=== PATIENT | female | born 1970 | race Caucasian/White ===

== ENCOUNTER → 2016-06-29 | Outpatient (CLI) | payer OTHER ==
--- NOTE | 2016-06-29 12:01 | US ---
Diagnostic Bilateral Breast Ultrasound History: Palpable lump in the 6 o'clock left breast on physical exam. Asymmetry on mammograms. Comparison: Diagnostic mammogram same day. Technique: Limited grayscale and Doppler ultrasound in the region of mammographic abnormality was per formed. Real-time sonography was performed by the radiologist. Findings: Directed visible exam was performed, with no discrete lump identified in the 6 o'clock left breast. Ultrasound of the area shows dense breast parenchyma with no cystic or solid masses or areas of architectural distortion. Ultrasound of the right breast in the areas of mammographic asymmetries shows dense breast parenchyma with no cystic or solid masses or areas of architectural distortion. Impression: BI-RADS 2: Benign findings. Recommendation: Clinical follow-up is recommended for palpable left breast lump with no sonographic o r mammographic etiology. Screening mammograms in one year of sooner if clinically indicated. Findings and recommendations were discussed with the patient. [facility] will send a result letter to the patient.
--- NOTE | 2016-06-29 12:03 | MA ---
Bilateral Digital Diagnostic Mammogram Clinical Indications: 46-year-old with palpable lump in the 6 o'clock left breast on physical exam (n ot currently palpable by the patient), baseline mammograms. technique: Standard cephalocaudal and mediolateral oblique projections were obtained. True lateral views were obtained bilaterally with CC and mediolateral spot compression views of the right breast. This examination was processed by the [employer] computer-aided detection system. Comparison: None available. Breast density: Type C: The breast tissue is heterogeneously dense, which may obscure small masses. Findings: CAD was reviewed. No suspicious calcifications, masses, or areas of architectural distorti on are identified in the left breast, although heterogeneously dense breast parenchyma limits sensiti vity. There are asymmetries in the superoinferior and central right breast, best seen on the MLO view , with heterogeneously dense breast parenchyma in the central and outer right breast on the CC view. Heterogeneously dense breast parenchyma reduces sensitivity for noncalcified masses. Impression: 1. No visible etiology for the patient's palpable lump. 2. Multiple asymmetries in the right breast that could be related to overlapping breast parenchyma. BI-RADS 0: Needs additional imaging evaluation. Recommendation: Ultrasound, which will be performed later the same day. Please see separate dictatio n for findings and recommendations. [facility] will send a result letter to the patient. Negative mammography should not preclude additional workup of a clinically suspicious finding. The patient's information is entered into a reminder system with a target due date for her next mammo gram.
--- NOTE | 2016-06-29 14:49 | US ---
Transabdominal and Transvaginal Pelvic Ultrasound History: 46-year-old with irregular menses, LMP June 25, 2016, family history of ovarian cancer. Comparison: None available. Findings: Transabdominal: The uterus measures 9.8 x 5.4 x 7.1 cm. The bladder is normal. Transvaginal: No fibroids are present. The myometrium is mildly heterogeneous. The endometrium is terrance ogeneous and measures 6 mm. The left ovary measures 3.0 x 2.5 x 3.2 cm. A 2.4 x 1.6 x 1.6 cm benign-a ppearing cyst in the left ovary has minimal peripheral echogenicity, which could be related to calcif ication. The right ovary measures 2.3 x 1.2 x 2.6 cm. There is an echogenic relatively homogeneous st ructure in the right adnexa measuring approximately 6.9 x 4.7 x 4.3 cm. Normal arterial blood flow is documented to both ovaries by Doppler ultrasound. There is trace free fluid. Impression: 1. 6.9-cm relatively homogeneous echogenic right adnexal structure, which could represent endometriom a, dermoid, or other etiology. Pelvic MRI with contrast is recommended for further evaluation. 2. Left ovarian cyst with equivocal calcification at its margin. This could also be further evaluated with MRI. 3. Mildly heterogeneous myometrium, which can be seen with adenomyosis. Findings discussed with Lindsay Alvarado PA-C on June at 1418 hours.
== END ==
LOC: BRMIMAGING 10:19
PROVIDERS: ATTEND Physician Assistant Medical
DX: N63 Unspecified lump in breast (principal); N83.202 Unspecified ovarian cyst, left side
CPT/HCPCS: 76641-PO; 76856-PO; G0204